=== PATIENT | female | born 2000 | race Caucasian/White ===

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

== ENCOUNTER 2021-08-14 03:56 | Emergency (ER) | payer MEDICAID ==
[2021-08-14 04:21] VITALS: BP 129/76; PULSE 113
== END 2021-08-14 05:01 | disposition home or self-care (01) ==
LOC: JP.ED 03:56
DX: H65.01 Acute serous otitis media, right ear (principal); K21.9 Gastro-esophageal reflux disease without esophagitis; E66.9 Obesity, unspecified; Z68.41 Body mass index [BMI] 40.0-44.9, adult
CPT/HCPCS: 99283

== ENCOUNTER 2022-10-15 18:53 | Emergency (ER) | payer MEDICAID ==
[2022-10-15] MEDS ORDERED: Proparacaine 0.5% Ophth Soln 15 ML Bottle EYEBOTH STA (18:59)
[2022-10-15 19:08] VITALS: BP 137/63; PULSE 83
== END 2022-10-15 20:12 | disposition home or self-care (01) ==
LOC: JP.ED 18:53
DX: S05.01XA Injury of conjunctiva and corneal abrasion without foreign body, right eye, initial encounter (principal); E66.9 Obesity, unspecified; F17.210 Nicotine dependence, cigarettes, uncomplicated; Z68.36 Body mass index [BMI] 36.0-36.9, adult; W22.8XXA Striking against or struck by other objects, initial encounter
CPT/HCPCS: 99283; A9270; 99282